=== PATIENT | male | born 1965 ===

== ENCOUNTER 2021-07-20 18:46 | Emergency (ER) | payer OTHER ==
[2021-07-20] MEDS ORDERED: Sodium Chloride 0.9% 10 ML Syringe FLUSH PRN (18:55)
[2021-07-20] MEDS ORDERED: Sodium Chloride 0.9% 1,000 ML IV ONE (19:21)
[2021-07-20 19:41] LABS: ANION GAP 14.7 mEq/L (7-13); CHLORIDE,CL 104 mmol/L (98-107); SODIUM,NA 140 mmol/L (136-145)
== END 2021-07-20 20:37 | disposition home or self-care (01) ==
LOC: DL.ED 18:46
DX: R07.9 Chest pain, unspecified (principal); Z88.8 Allergy status to other drugs, medicaments and biological substances; Z91.09 Other allergy status, other than to drugs and biological substances; Z20.822 Contact with and (suspected) exposure to COVID-19
CPT/HCPCS: 36415; 71045; 80053; 80307; 83605; 83690; 83735; 84443; 84484; 85025; 85379; 86140; 87635; 93005; 99285; J3490; J7030; U0002